=== PATIENT | male | born 1990 | race Caucasian/White ===

== ENCOUNTER 2019-10-24 17:00 | Emergency (ER) | payer BC, SELFPAY ==
[2019-10-24 17:03] VITALS: BP 142/95; PULSE 95; RESP 15; TEMP 36.6; O2SAT 97; BMI 35.6
[2019-10-24 17:45] LABS: Absolute Lymphocyte Count 2.83 X10^3/uL (0.83-4.51); Absolute Neutrophil Count 8.8 X10^3/uL (2.0-7.7); Basophil# 0.07 X10^3/uL; Basophil% 0.5 % (0-1); Eosinophil# 0.19 X10^3/uL; Eosinophils% 1.5 % (0-5); Hematocrit 45.8 % (40-54); Hemoglobin 15.3 g/dL (13.0-16.5); Lymphocyte # 2.83 X10^3/ul (4.0); Lymphocyte % 22.1 % (19-41); Mean Corp Hgb Conc 33.4 g/dL (32-36); Mean Corpuscular Hgb 29.1 pg (27.0-32.0); Mean Corpuscular Volume 87.2 fL (80-94); Monocyte# 0.88 X10^3/uL; Monocyte% 6.9 % (0-10); NRBC Flagged by Analyzer 0 % (0-5); Neutrophil # 8.77 X10^3/uL (2.7-7.7); Neutrophil % 68.6 % (47-70); Platelet Count 232 K/mm3 (150-450); RBC Distribution Width CV 12.2 % (11.6-14.6); RBC Distribution Width SD 38.8 fl (35.1-43.9); Red Blood Count 5.25 M/mm3 (4.6-6.2); White Blood Count 12.8 K/mm3 (4.4-11.0)
[2019-10-24 17:55] LABS: Anion Gap 4 (5-15); BUN 14 mg/dL (7-18); BUN/Creat Ratio 13.5 RATIO (10-20); Calcium,Total 9.1 mg/dL (8.5-10.1); Chloride 107 mmol/L (98-107); Creatinine, Serum 1.04 mg/dL (0.70-1.30); EST Glomerular Filtration Rate 89 mL/min (>60); Est Glom Filt Rate - Afr Amer 107 mL/min (>60); Estimated Creatinine Clearance 112.96 ml/min; Glucose 84 mg/dL (74-106); Sodium Level 140 mmol/L (136-145)
[2019-10-24 18:35] LABS: Mucous, Urine 0 SEEN /hpf (<or=2+); Red Blood Cells-Urine 0 SEEN /hpf (0-5); Squamous Epithelial Cells - UA 0 SEEN /hpf (0-5); White Blood Cells 0 SEEN /hpf (0-5)
--- NOTE | 2019-10-24 18:40 | CT_ITS ---
STUDY: CT ABDOMEN AND PELVIS WITH CONTRAST REASON FOR EXAM: Male, 29 years old. ABD PAIN, N/V/D X 6 DAYS. UMBILICAL PAIN RADIATION DOSAGE (If Supplied By Facility): CTDIvol = ( 18.34 ) mGy, DLP = ( 1350.97 ) mGycm TECHNIQUE: Transaxial images were obtained from the dome of the diaphragm to the symphysis pubis without oral contrast. Oral and amp; IV Gastrografin and amp; 100mL Isovue-370 was administered. Sagittal and coronal images were reconstructed. Individualized dose optimization techniques were used for this CT. COMPARISON: None. FINDINGS: Lung bases are clear. Heart size is normal. The liver is unremarkable. The gallbladder is contracted. The spleen and pancreas are unremarkable. The adrenal glands are normal. The kidneys are unremarkable. No stones or hydronephrosis. The aorta is normal in caliber. There is no free fluid, free air, or organized collection. There is haziness of the central mesentery, with mild mesenteric adenopathy. Mesenteric nodes measure up to 1.1 cm in short axis. No bowel obstruction or inflammatory change. Normal appendix. Urinary bladder is unremarkable. Normal abdominal wall. Normal osseous structures. CT/Abdomen/Pelvis WITH Contrast IMPRESSION: 1. Mild mesenteric adenopathy. Consider lymphadenitis. Lymphoma is considered less- to unlikely, but clinical and CT follow-up should be considered. Electronically Signed: Zoe Pisano MD at 20:47 EST Tel , Service support ,
--- NOTE | 2019-10-24 18:40 | US_ITS ---
STUDY: SCROTUM ULTRASOUND REASON FOR EXAM: Male, 29 years old. LT TESTICLE PAIN THAT RADIATES UPWARD - LT LUMP TECHNIQUE: Ultrasound evaluation of the scrotum was performed with color Doppler and static torres-scale imaging. COMPARISON: None. FINDINGS: RIGHT TESTICLE INTRATESTICULAR: There is a normal size of the right testicle. The right testicle measures 4.7 x 2.3 x 2.6 cm. There is a homogenous echotexture. There is normal arterial and normal venous vascularity. There is no demonstrated right testicular mass or cyst. EXTRATESTICULAR: The epididymis is normal in size. The epididymis head measures 1.5 x 1.3 cm. There is normal vascularity of the epididymis. There is no demonstrated epididymal cystic structure. There is trace hydrocele. There is no demonstrated varicocele. There is no demonstrated extratesticular mass or cyst. LEFT TESTICLE INTRATESTICULAR: There is a normal size of the left testicle. The left testicle measures 4.8 x 2.2 x 2.7 cm. There is a homogenous echotexture. There is normal arterial and normal venous vascularity. There is no demonstrated left testicular mass or cyst. EXTRATESTICULAR: The epididymis is normal in size. The epididymis head measures 1.5 x 0.9 cm. There is normal vascularity of the epididymis. There is a 6 x 4 mm epididymal cyst. There is no demonstrated hydrocele. There is no demonstrated varicocele. There is a 7 x 7 x 4 mm hypoechoic lesion in the tail of the epididymis without demonstrated color flow. This may represent a hemorrhagic cyst or spermatocele. US/Testicular with Arterial Flow IMPRESSION: 1. Normal bilateral testes. 2. Hemorrhagic cyst versus spermatocele in the left epididymal tail. 3. Small cyst in the left epididymal head. 4. Trace right hydrocele. Electronically Signed: Zoe Pisano MD at 19:34 EST Tel , Service support ,
[2019-10-24 18:59] LABS: Color, Urine Yellow (Yellow); Glucose, Dipstick Normal (Normal); Ketone-Dipstick 5 mg/dl (Negative); Leukocyte Esterase-Dipstick 25 /ul (Negative); Nitrite-Dipstick Negative (Negative); Occult Blood-Urine Negative /ul (Negative); Protein-Dipstick Negative (Negative); Urine Bilirubin Dipstick Negative (Negative); Urine Clarity Clear (Clear); Urine Urobilinogen Normal (Normal)
--- NOTE | 2019-10-24 19:25 | ED.DCSUM_ITS ---
- ER Visit Summary Date of Service: 10/24/19 Chief Complaint: Abdominal pain History of Present Illness: The patient is a 29 M presenting with abdominal pain. He states he had an episode of abdominal pain 2 weeks ago. He was seen by his primary care physician advised he likely had an intestinal virus. He states his symptoms improved but he began having symptoms again on Monday. He has had nausea, vomiting, diarrhea. He has had no vomiting today and 2-3 episodes of diarrhea today. No blood in his stool. He complains of diffuse abdominal cramping. He states he has had intermittent left testicle pain. He currently has no testicular pain. He denies fever. Denies other complaints. Physical Examination: Vitals are stable. Patient is afebrile. Alert no acute distress. HEENT exam is unremarkable. Neck is supple. Lungs are clear and equal bilaterally. Heart is regular rate and rhythm. Abdomen is soft mild periumbilical tenderness with no rebound or guarding Extremities are unremarkable. Skin is warm and dry. No focal neurologic deficit. Remainder of exam is unremarkable. Emergency Department Course and Treatment: CBC shows white count 12.8. Chemistries unremarkable. Liver lipase normal. Urinalysis unremarkable. CT abdomen pelvis shows mild mesenteric adenopathy. Consider lymphadenitis. Lymphoma is considered less- to unlikely, but clinical and CT follow-up should be considered. Patient was advised of these findings and will follow up with his primary care physician. Testicular ultrasound shows normal bilateral testes. Hemorrhagic cyst versus spermatocele in the left epididymal tail. Small cyst in the left epididymal head. Trace right hydrocele. He was given Dr. Patel for follow-up. On reevaluation, patient is resting comfortably. He has Zofran prescription. He is given a prescription for Bentyl. Advised to follow-up with his primary care physician. Advised return to ED for worsening complaints. Disposition: Discharged home Impression: Abdominal pain This note was generated with [employer] dictation software. It may contain incorrect words, spelling, and punctuation that were not noted in review of the chart prior to signing ED Disposition - Plan for ED Patient: Instructions: ABDOMINAL PAIN, Unkown Cause, (Male) Prescriptions: Dicyclomine HCl [Bentyl] 20 mg PO TIDAC #20 cap Prescription Printed Referrals: Babak Patel MD [STAFF PHYSICIAN] - [facility] Doctor,Out of [Primary Care Provider] -
[2019-10-24 19:38] LABS: Bacteria RARE /hpf (None Seen); Calcium Oxalate Crystals Ur 2+ /hpf (<or=2+)
[2019-10-24 19:47] VITALS: BP 135/84; PULSE 85; RESP 16; O2SAT 100
[2019-10-24 19:55] LABS: AST(SGOT) 19 U/L (15-37); Alanine Aminotransfer ALT/SGPT 38 U/L (16-61); Albumin, Serum 4.2 g/dL (3.2-5.0); Alkaline Phosphatase 71 U/L (45-117); Bilirubin, Direct 0.11 mg/dL (0.00-0.30); Globulin 3.4 g/dL (2.2-4.2); Lipase 111 U/L (73-393); Protein, Total 7.6 g/dL (6.4-8.2)
[2019-10-24 21:21] VITALS: BP 134/72
--- NOTE | 2019-10-24 21:26 | DCINST.ED_ITS ---
ED Disposition - Plan for ED Patient: Instructions: ABDOMINAL PAIN, Unkown Cause, (Male) Prescriptions: Dicyclomine HCl [Bentyl] 20 mg PO TIDAC #20 capsule Referrals: [facility],Out of [Primary Care Provider] - Babak Patel MD [STAFF PHYSICIAN] -
[2019-10-24 21:47] VITALS: BP 122/85; PULSE 82; RESP 16; O2SAT 96
== END 2019-10-24 21:47 | disposition home or self-care (01) ==
LOC: ED 18:29
PROVIDERS: Emergency Provider Emergency Medicine
DX: R10.9 Unspecified abdominal pain (principal); Z72.0 Tobacco use; R19.7 Diarrhea, unspecified
CPT/HCPCS: 74177; 76870; 80048; 80076; 81001; 83690; 85025; 93976; 99283; Q9967; A4216